=== PATIENT | male | born 1965 ===

== ENCOUNTER 2018-07-21 16:41 | Emergency (ER) | payer SELFPAY ==
[~2018-07-21] VITALS: Ht 162.6 cm; Wt 80.0 kg
[2018-07-21] MEDS ORDERED: IBUPROFEN 600MG TABLET PO ONE (20:15)
[2018-07-21] MEDS ORDERED: BACITRACIN ZINC OINT UDPKT TOP ONE (20:30)
[2018-07-21 21:40] VITALS: BP 134/92
== END 2018-07-21 21:42 | disposition home or self-care (01) ==
LOC: ER 16:41
DX: S92.421A Displaced fracture of distal phalanx of right great toe, initial encounter for closed fracture (principal); M84.374A Stress fracture, right foot, initial encounter for fracture; X58.XXXA Exposure to other specified factors, initial encounter; Y93.89 Activity, other specified; Y92.89 Other specified places as the place of occurrence of the external cause; Y99.8 Other external cause status
CPT/HCPCS: 73630; 99284